=== PATIENT | female | born 1945 | race Caucasian/White ===

== ENCOUNTER → 2018-07-31 | Outpatient (CLI) | payer MEDICARE ==
[~2018-07-31] MED LIST: ACET325T14 PO; ATOR10TA PO; ESCI10TA10 PO; FLEC100T PO; LOSA50TA7 PO; RIVA20TA PO
[2018-07-31 11:15] LABS: BASOPHILS # (AUTO) 0.03 x10^3/uL (0-0.1); BASOPHILS % (AUTO) 1 % (0-1); EOSINOPHILS # (AUTO) 0.09 x10^3/uL (0-0.4); EOSINOPHILS % (AUTO) 2 % (1-7); LYMPHOCYTES # (AUTO) 1.28 x10^3/uL (1-3.4); LYMPHOCYTES % (AUTO) 21 % (22-44); MD NO; MEAN CORPUSCULAR HEMOGLOBIN 34.8 pg (27.0-34.8); MEAN CORPUSCULAR HGB CONC 34.8 g/dL (32.4-35.8); MEAN CORPUSCULAR VOLUME 99.9 fL (80-100); MEAN PLATELET VOLUME 7.5 fL (7.4-10.4); MONOCYTES # (AUTO) 0.59 x10^3/uL (0.2-0.8); MONOCYTES % (AUTO) 10 % (2-9); NEUTROPHILS # (AUTO) 4.12 x10^3/uL (1.8-6.8); NEUTROPHILS % (AUTO) 67 % (42-75); PLATELET COUNT 225 x10^3/uL (130-400); RED BLOOD COUNT 4.11 x10^6/uL (3.82-5.3); RED CELL DISTRIBUTION WIDTH 13.6 % (9.6-15.2)
[2018-07-31 11:26] LABS: ALANINE AMINOTRANSFERASE 34 U/L (12-78); ANION GAP 6 mmol/L (5-15); CALCIUM 9.2 mg/dL (8.5-10.1); CHLORIDE 108 mmol/L (98-107)
[2018-07-31 11:26] LABS: MICROSCOPIC INDICATED
[2018-07-31 11:29] LABS: ALKALINE PHOSPHATASE 80 U/L (45-117); BILIRUBIN,TOTAL 0.5 mg/dL (0.2-1.0); CREATININE 1.08 mg/dL (0.55-1.02); TOTAL PROTEIN 7.7 g/dL (6.4-8.2)
[2018-07-31 12:12] LABS: CULTURE INDICATED? NO
== END | disposition home or self-care (01) ==
LOC: STAR 09:56
PROVIDERS: ATTEND Orthopaedic Surgery
DX: Z01.818 Encounter for other preprocedural examination (principal); M17.11 Unilateral primary osteoarthritis, right knee; Z87.891 Personal history of nicotine dependence
CPT/HCPCS: 36415; 80053; 81001; 85025; 87081; 93005

== ENCOUNTER 2018-08-05 05:50 | Inpatient (IN) | payer MEDICARE ==
[~2018-08-05] VITALS: Ht 175.3 cm; Wt 116.9 kg
[2018-08-05] MEDS ORDERED: TRANEXAMIC ACID 100 MG/ML, 10ML ONE (06:16)
[2018-08-05] MEDS ORDERED: KETOROLAC 60 MG/2 ML ONE (06:16)
[2018-08-05] MEDS ORDERED: VANCOMYCIN 1,000 MG ONE (06:17)
[2018-08-05] MEDS ORDERED: ROPivacaine/PF 0.2%, 10 ML ONE (06:17)
[2018-08-05] MEDS ORDERED: EPINEPHRINE 1 MG/ML, 1ML ONE (06:17)
[2018-08-05] MEDS ORDERED: SODIUM CHLORIDE 0.9% 100 ML ONE (06:17)
[2018-08-05] MEDS ORDERED: MIDAZOLAM 1 MG/ML, 2ML ONE (06:22)
[2018-08-05] MEDS ORDERED: FENTANYL PF 100 MCG/2ML ONE (06:22)
[2018-08-05] MEDS ORDERED: LABETALOL 5MG/ML, 20ML IV PRN (06:30)
[2018-08-05] MEDS ORDERED: PROCHLORPERAZINE 5 MG/ML, 2ML IV PRN (06:30)
[2018-08-05] MEDS ORDERED: OXYcodone 5 MG/5 ML ORAL.SOL UDC PO PRN (06:30)
[2018-08-05] MEDS ORDERED: MEPERIDINE/PF 25MG/0.5ML IVPush PRN (06:30)
[2018-08-05] MEDS ORDERED: FENTANYL PF 100 MCG/2ML IV PRN (06:30)
[2018-08-05] MEDS ORDERED: DIPHENHYDRAMINE 50 MG/ML, 1ML IVPush PRN (06:30)
[2018-08-05] MEDS ORDERED: PROMETHAZINE 12.5 MG SUPP PR PRN ×2 (06:30→09:00)
[2018-08-05] MEDS ORDERED: EPHEDRINE 50 MG/ML, 1ML IM PRN (06:30)
[2018-08-05] MEDS ORDERED: HYDROmorphone 1 MG/ML, 1ML IV PRN ×2 (06:30→09:00)
[2018-08-05] MEDS ORDERED: PROPOFOL 50 ML ONE (06:30)
[2018-08-05] MEDS ORDERED: KETOROLAC 30 MG/1 ML IV PRN (06:30)
[2018-08-05] MEDS ORDERED: LACTATED RINGERS 1,000 ML IV SCH (06:40)
[2018-08-05 06:43] VITALS: BP 139/68
[2018-08-05] MEDS ORDERED: ONDANSETRON ODT 8 MG PO ONE (07:00)
[2018-08-05] MEDS ORDERED: GABAPENTIN 300 MG CAPSULE PO ONE (07:00)
[2018-08-05] MEDS ORDERED: ACETAMINOPHEN 500 MG TABLET PO ONE (07:00)
[2018-08-05] MEDS ORDERED: TAMSULOSIN 0.4 MG CAP.ER.24H PO ONE (07:00)
[2018-08-05] MEDS ORDERED: CEFAZOLIN 1,000 MG ONE (07:21)
[2018-08-05] MEDS ORDERED: PHENYLEPHRINE 10 MG/ML ONE (07:21)
[2018-08-05] MEDS: D5%-0.45% NACL 1,000 ML IV SCH ×2 (08:56→15:11)
[2018-08-05] MEDS: CITALOPRAM 20 MG TABLET PO SCH (09:00)
[2018-08-05] MEDS: MULTIVITAMINS/MINERALS TABLET PO SCH (09:00)
[2018-08-05] MEDS: DOCUSATE 100 MG CAPSULE PO SCH ×2 (09:00→21:12)
[2018-08-05] MEDS: FLECAINIDE 100MG TABLET PO SCH ×2 (09:00→21:13)
[2018-08-05] MEDS ORDERED: ONDANSETRON 2MG/ML, 2ML IV PRN (09:00)
[2018-08-05] MEDS: ACETAMINOPHEN 650 MG/20.3 ML UDC PO SCH ×3 (09:00→21:13)
[2018-08-05] MEDS ORDERED: SENNA/DOCUSATE TABLET PO PRN (09:00)
[2018-08-05] MEDS: LOSARTAN 50MG TABLET PO SCH ×2 (09:00→21:13)
[2018-08-05] MEDS ORDERED: BISACODYL 10 MG SUPP PR PRN (09:00)
[2018-08-05] MEDS ORDERED: PROMETHAZINE 25 MG/ML, 1ML IM PRN (09:00)
[2018-08-05] MEDS ORDERED: ZOLPIDEM 5MG TABLET PO PRN (09:00)
[2018-08-05] MEDS ORDERED: DIPHENHYDRAMINE 50 MG CAPSULE PO PRN (09:00)
[2018-08-05] MEDS ORDERED: MAGNESIUM HYDROXIDE 8%, 30ML UDC PO PRN (09:00)
[2018-08-05] MEDS ORDERED: ONDANSETRON 4 MG TABLET PO PRN (09:00)
[2018-08-05] MEDS ORDERED: ALUMINUM/MAG/SIMETHICONE 30 ML UDC PO PRN (09:00)
[2018-08-05] MEDS ORDERED: HYDROcodone/APAP 10/325 MG TABLET PO PRN (09:00)
[2018-08-05] MEDS ORDERED: DIAZEPAM 5 MG TABLET PO PRN (09:00)
[2018-08-05] MEDS ORDERED: TRANEXAMIC ACID 1,000 MG in SODIUM CHLORIDE 0.9% 100 ML IVPB ONE (09:30)
[2018-08-05] MEDS: TAMSULOSIN 0.4 MG CAP.ER.24H PO SCH (09:30)
[2018-08-05] MEDS ORDERED: OXYcodone 5 MG/5 ML ORAL.SOL UDC ONE (09:48)
[2018-08-05] MEDS ORDERED: HYDROmorphone 2 MG/ML, 1ML ONE (10:36)
[2018-08-05 12:42] VITALS: BP 90/65
[2018-08-05] MEDS: OXYcodone IR 5MG TABLET PO PRN (13:54)
[2018-08-05] MEDS: CEFAZOLIN 2,000 MG in SODIUM CHLORIDE 0.9% 50 ML IV SCH ×2 (15:10→23:34)
[2018-08-05 19:22] VITALS: BP 115/64
[2018-08-05] MEDS ORDERED: ATORVASTATIN 10 MG TABLET PO SCH (21:00)
[2018-08-05 23:39] VITALS: BP 120/62
[2018-08-06] MEDS: OXYcodone IR 5MG TABLET PO PRN ×3 (00:39→10:27)
[2018-08-06] MEDS: D5%-0.45% NACL 1,000 ML IV SCH ×2 (00:56→08:06)
[2018-08-06] MEDS: ACETAMINOPHEN 650 MG/20.3 ML UDC PO SCH ×2 (03:22→08:04)
[2018-08-06 03:27] VITALS: BP 116/57
[2018-08-06] MEDS ORDERED: DEXAMETHASONE 4 MG/ML, 1ML IVPush SCH (06:00)
[2018-08-06] MEDS ORDERED: RIVAROXABAN 10 MG TABLET PO SCH (06:00)
[2018-08-06 07:29] VITALS: BP 118/69
[2018-08-06] MEDS: FLECAINIDE 100MG TABLET PO SCH (08:04)
[2018-08-06] MEDS: TAMSULOSIN 0.4 MG CAP.ER.24H PO SCH (08:05)
[2018-08-06] MEDS: DOCUSATE 100 MG CAPSULE PO SCH (08:05)
[2018-08-06] MEDS: CITALOPRAM 20 MG TABLET PO SCH (08:05)
[2018-08-06] MEDS: MULTIVITAMINS/MINERALS TABLET PO SCH (08:05)
[2018-08-06] MEDS: LOSARTAN 50MG TABLET PO SCH (08:06)
[2018-08-06] MEDS ORDERED: OXYC5TAB3 PO (08:56)
[2018-08-06] MEDS ORDERED: KETOROLAC 30 MG/1 ML IV SCH (09:00)
== END 2018-08-06 11:01 | disposition home or self-care (01) | DRG 470 ==
LOC: OUT 05:50 → 4NOR 10:15 → OUT 21:06 → 4NOR 21:47 → DCLOUNGE 08-06 10:43
PROVIDERS: ADMIT Orthopaedic Surgery; ATTEND Orthopaedic Surgery
PROC: 0SRC0J9 Replacement of Right Knee Joint with Synthetic Substitute, Cemented, Open Approach (ICD-10-PCS; principal; 2018-08-05 07:30)
DX: M17.11 Unilateral primary osteoarthritis, right knee (principal); E03.9 Hypothyroidism, unspecified; E78.5 Hyperlipidemia, unspecified; I10 Essential (primary) hypertension; I48.91 Unspecified atrial fibrillation; Z85.828 Personal history of other malignant neoplasm of skin; Z91.040 Latex allergy status; E66.9 Obesity, unspecified; Z68.38 Body mass index [BMI] 38.0-38.9, adult; G47.33 Obstructive sleep apnea (adult) (pediatric); Z79.01 Long term (current) use of anticoagulants
CPT/HCPCS: 36415; 85014; 85018; C1713; G0378; J0171; J0690; J1100; J1170; J1885; J2250; J2704; J2795; J3010; J3370; Q0162; C1776; J2370; J7120